=== PATIENT | female | born 1955 | race Caucasian/White ===

== ENCOUNTER → 2016-08-09 | Outpatient (CLI) | payer MEDICAID ==
--- NOTE | 2016-08-09 15:53 | MA ---
Screening Digital Mammogram With iCAD Analysis Clinical Indications: 61-year-old female with no family history of breast cancer, currently taking ho rmone replacement therapy, and presenting for routine annual mammographic screening. Technique: Standard cephalocaudal projections are obtained. Digital breast tomosynthesis was performe d in the MLO projection with reconstruction at 1.0 mm slice thickness and composite MLO views reconst ructed. This examination is processed by the iCAD computer aided detection system. Comparison Studies: Unilateral left mammography dated August 27, 2014, and bilateral screening mammo graphy dated July 30, 2014 and June 11, 2012. Breast Density: Type B; Scattered fibroglandular densities. Findings: CAD was reviewed. There is an equivocal area of architectural distortion in the left breast , and spot compression craniocaudal, rolled medial and rolled lateral craniocaudal, a true mediolater al, and spot compression MLO views are suggested determine if this is a real finding or is merely rel ated to superimposition of fibroglandular tissue. The patient had spot compression views of the later al left breast in August 2014, and this appeared to compress further. If this should remain persiste nt, ultrasound could be considered. There are no new suspicious clustered microcalcifications. Impression: Needs additional imaging evaluation of a tiny focus of architectural distortion in the ou ter left breast. BI-RADS category 0, incomplete. Recommendation: Supplementary spot compression views, as above-detailed, and possible breast sonograp hy. The latter will be left to the discretion of the interpreting radiologist. [facility] will send a result letter to the patient. Negative mammography should not preclude additional workup of a clinically suspicious finding. The patient's information is entered into a reminder system with a target due date for her next mammo gram.
== END ==
LOC: FIMAGING 14:56
DX: Z12.31 Encounter for screening mammogram for malignant neoplasm of breast (principal); Z79.890 Hormone replacement therapy; R92.8 Other abnormal and inconclusive findings on diagnostic imaging of breast
CPT/HCPCS: G0202

== ENCOUNTER → 2016-09-07 | Outpatient (CLI) | payer MEDICAID ==
--- NOTE | 2016-09-07 15:43 | MA ---
Diagnostic Digital Mammogram Left Breast With iCAD Analysis Reason for examination: Evaluate possible developing small focus of architectural distortion in the o uter left breast. Technique: Oblique and craniocaudal spot compression views are obtained. Additionally, rolled medial and lateral collateral craniocaudal views are obtained and a large paddle spot compression is perform ed in the craniocaudal projection. A true lateral view of the left breast is also obtained. The exami nation is processed by the iCAD computer-aided detection system. Comparison to older studies dating b ack to 2011. Findings: The abnormality does not persist on diagnostic evaluation and it was probably related to wells perimposition of normal glandular elements on the screening study. The appearance of the left breast on diagnostic assessment is unchanged compared to the older studies. Impression: Negative diagnostic mammography. BI-RADS: 1. Recommendation: Resume routine mammographic screening in one year as long as physical examination is negative. A verbal report was given to the patient. [facility] with send a result letter.
== END ==
LOC: FIMAGING 14:50
PROVIDERS: ATTEND Advanced Practice Midwife
DX: Z12.39 Encounter for other screening for malignant neoplasm of breast (principal); R92.2 Inconclusive mammogram
CPT/HCPCS: G0206